=== PATIENT | male | born 1990 | race Caucasian/White ===

== ENCOUNTER 2022-06-15 20:50 | Emergency (ER) | payer OTHER, SELFPAY ==
[2022-06-15 20:52] VITALS: BP 130/74; PULSE 73; RESP 18; TEMP 36.6; O2SAT 97; BMI 28.2
--- NOTE | 2022-06-15 20:56 | ED.GENADULT ---
HPI - General Adult General Chief complaint: Wound/Laceration Stated complaint: left leg laceration Physical Exam ED Vital Signs: Vital Signs - 24 hr 06/15/22 20:52 Temperature 98 F Pulse Rate 73 Respiratory Rate 18 Blood Pressure 130/74 Pulse Oximetry 97 Oxygen Delivery Method Room Air BMI result Body Mass Index 28.2 Course Course Course Narrative: 32-year-old male patient presents for evaluation of a left lower leg laceration. Approximately 2 cm, curvilinear. No obvious foreign body. No active bleeding. There is no evidence of vascular or tendon injury. The patient reports that he wants that checked out to make sure there is no major injury but does not want stitches this does not like needles. I advised the patient that she should get at least Dermabond if he does not want stitches to keep the wound clean and sealed Discharge Plan Discharge Clinical Impression: Laceration Patient Disposition: Elopement
== END 2022-06-15 21:03 | disposition left against medical advice (07) ==
PROVIDERS: Emergency Provider Emergency Medicine
DX: M79.662 Pain in left lower leg (principal)
CPT/HCPCS: 99281